=== PATIENT | female | born 1990 | race Caucasian/White ===

== ENCOUNTER 2021-04-30 14:56 | Observation (INO) | payer BC, SELFPAY ==
[2021-04-30 15:01] VITALS: BP 129/82; PULSE 78
[2021-04-30 15:03] VITALS: BMI 28.5
--- NOTE | 2021-04-30 15:03 | OBADM ---
This patient, Ofe Orellana, admitted to the OB room Labor/Delivery/Recovery 118 for observation. Patient/family oriented to hospital policies and general routines including ID bracelet, bed and alarms, visiting hours, pain management, procedures, bathroom and other care routines, personal items, smoking policy, room service/diet, and visiting hours. Patient/Family are encouraged to report perceived risks to care and to ask questions if they do not understand what they are told or what they should do.
[2021-04-30 15:15] VITALS: BP 123/76; PULSE 84
[2021-04-30 15:31] VITALS: BP 116/65; PULSE 86
[2021-04-30 15:46] VITALS: BP 113/74; PULSE 80
[2021-04-30 16:01] VITALS: BP 116/75; PULSE 81
[2021-04-30 16:16] VITALS: BP 120/64; PULSE 82
--- NOTE | 2021-04-30 18:21 | PC.NURSE ---
1451--Reported FHT's to Dr. Cervantes-appropriate for gestation. Orders for KB and 2 hour observation given,
--- NOTE | 2021-04-30 18:22 | PC.NURSE ---
1630--Tracing appropriate for gestation, pt marking movement appropriately; no contractions noted; Pt denies any cramping or distress. VSS
--- NOTE | 2021-04-30 18:24 | PC.NURSE ---
1620--KB negative; DC's to home with precautions.
--- NOTE | 2021-05-23 19:27 | PM.OBTRLD ---
OB - Triage/Final Diagnosis Visit Information Comments/Additional reasons for admission: I have assessed the risk for this patient, Ofe Orellana, and determined that she would benefit from observation care. Evaluation Laboratory results: Laboratory Tests 04/30/21 15:09 KB Hemoglobin Negative Final Diagnosis (1) Decreased movement: Code(s): O36.8190 - Decreased movements, unspecified trimester, not applicable or unspecified Status: Acute
== END 2021-04-30 16:46 | disposition home or self-care (01) ==
LOC: ANHLDR 14:57
PROVIDERS: Admitting Provider Obstetrics & Gynecology; PCP Family Medicine; Visit Provider Obstetrics & Gynecology
DX: O36.8190 Decreased fetal movements, unspecified trimester, not applicable or unspecified (principal); Z3A.23 23 weeks gestation of pregnancy
CPT/HCPCS: 36415; 85460; G0378; G0379

== ENCOUNTER 2022-11-05 18:38 | Emergency (ER) | payer BC, SELFPAY ==
[2022-11-05 18:42] VITALS: BP 136/71; PULSE 68; RESP 16; TEMP 37.1; O2SAT 100
[2022-11-05 18:48] VITALS: BP 136/71; PULSE 68; RESP 16; TEMP 37.1; O2SAT 100
--- NOTE | 2022-11-05 18:55 | ED.FEMALEGU ---
HPI - Female Genitourinary General Chief complaint: Urogenital-Female Stated complaint: Urinary Problem Time Seen by Provider: 11/05/22 18:55 History of Present Illness HPI Narrative: PATIENT PRESENTS WITH URINARY FREQUENCY AND URGENCY. PATIENT DENIES ANY GROSS HEMATURIA NO FLANK PAIN AND NO PELVIC PAIN. PATIENT HAS NO CONCERN FOR STDS. Related Data Allergies Allergy/AdvReac Type Severity Reaction Status Date / Time No Known Allergies Allergy Unknown Verified 11/05/22 18:48 Review of Systems Review of Systems: CONSTITUTIONAL: DENIES FEVER, CHILLS, OR SWEATS. EYES: DENIES VISUAL CHANGES, REDNESS, OR DISCHARGE. ENT: DENIES RHINORRHEA, CONGESTION, SORE THROAT, OR OTALGIA. CARDIOVASCULAR: DENIES CHEST PAIN, PALPITATIONS, OR EDEMA. RESPIRATORY: DENIES COUGH OR DYSPNEA. GASTROINTESTINAL: DENIES ABDOMINAL PAIN, NAUSEA, VOMITING, OR DIARRHEA. GENITOURINARY: DENIES DYSURIA OR HEMATURIA. SKIN: DENIES RASH OR ITCHING. MUSCULOSKELETAL: DENIES BACK PAIN, JOINT PAIN, OR MYALGIA. NEUROLOGIC: DENIES HEADACHE, NUMBNESS, OR WEAKNESS. PSYCHIATRIC: DENIES ANXIETY OR DEPRESSION. [facility] Past Medical History Medical History (Updated 11/05/22 @ 18:59 by MARTHA Orozco) Hypothyroidism (acquired) Surgical History Surgical History (Updated 01/16/22 @ 13:36 by Ashley Carl MA) History of section, unknown scar Family History Family History Father Hypertension Cerebrovascular accident Mother Family history of malignant neoplasm Family history of diabetes mellitus in first degree relative Social History Social History Smoking status: Never smoker Alcohol intake: current Comments AT TIME OF SIGNATURE, AGREE WITH NURSING PAST MEDICAL, SURGICAL, SOCIAL AND FAMILY HISTORY. THERE IS NO RELEVANT FAMILY HISTORY PERTINENT TO THE PRESENTING COMPLAINT Exam Narrative: GENERAL: WELL-APPEARING, WELL-NOURISHED, AND IN NO ACUTE DISTRESS. HEAD: NORMOCEPHALIC, ATRAUMATIC. EYES: PERRLA AND EOMI. ENT: NARES CLEAR, NO RHINORRHEA OR EPISTAXIS. MUCOUS MEMBRANES MOIST. NECK: SUPPLE. CHEST: CLEAR TO AUSCULTATION. NO RESPIRATORY DISTRESS. HEART: REGULAR RATE AND RHYTHM. NO MURMUR HEARD. NORMAL PERIPHERAL PULSES. NO FLANK PAIN NO PELVIC PAIN ABDOMEN: SOFT, NONTENDER, NONDISTENDED, NORMAL ACTIVE BOWEL SOUNDS. EXTREMITIES: NORMAL RANGE OF MOTION. NO EDEMA. SKIN: WARM, DRY, NO RASH. NEURO: NO FOCAL DEFICITS. ALERT AND ORIENTED X3. DARREN COMA SCALE EYE OPENING: SPONTANEOUS 4 DARREN COMA SCALE MOTOR: OBEYS COMMANDS 6 DARREN COMA SCALE VERBAL: ORIENTED 5 DARREN COMA SCALE TOTAL 15 Course Course Level of Care: Express Care Visit Vital Signs Vital signs: Vital Signs Temperature 37.1 C 11/05/22 18:42 Pulse Rate 68 11/05/22 18:42 Respiratory Rate 16 11/05/22 18:42 Blood Pressure 136/71 11/05/22 18:42 Pulse Oximetry 100 11/05/22 18:42 Oxygen Delivery Room Air 11/05/22 18:42 Temperature 37.1 C 11/05/22 18:48 Pulse Rate 68 11/05/22 18:48 Respiratory Rate 16 11/05/22 18:48 Blood Pressure 136/71 11/05/22 18:48 Pulse Oximetry 100 11/05/22 18:48 Oxygen Delivery Room Air 11/05/22 18:48 MDM - Female Genitourinary Differential Diagnosis Differential diagnosis: Likely urinary tract infection, bacterial vaginosis, trichomoniasis, cervicitis, ovarian cyst, vaginitis, ruptured ovarian cyst and cyst of Bartholin's gland Lab Data Labs: Urine Glucose Negative Reference Range: Negative Urine Bilirubin Negative Reference Range: Negative Urine Ketone Negative Reference Range: Negative Urine Specific [place] 1.020 Reference Range:1.001-1.
== END 2022-11-05 19:00 | disposition home or self-care (01) ==
PROVIDERS: Emergency Provider Nurse Practitioner Family; PCP Nurse Practitioner Family
DX: N39.0 Urinary tract infection, site not specified (principal); E03.9 Hypothyroidism, unspecified
CPT/HCPCS: 81003; 87086; 99213; G0463

== ENCOUNTER 2023-03-30 09:54 | Emergency (ER) | payer BC, SELFPAY ==
--- NOTE | 2023-03-30 09:58 | ED.URI ---
HPI - URI/Sore Throat General Chief Complaint: Upper Respiratory Infection Stated Complaint: sore throat Time Seen by Provider: 03/30/23 09:58 Source: patient Mode of arrival: ambulatory Limitations: no limitations History of Present Illness HPI Narrative: Patient is a 32-year-old female presents with 3 days of sore throat, congestion and runny nose. 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 Patient has been taking allergy medicine and Tylenol with only mild relief. Patient reports daughter and also has similar symptoms. Denies any fever, chills, nausea, vomiting, diarrhea. Patient is also 5 weeks Related Data Allergies Allergy/AdvReac Type Severity Reaction Status Date / Time No Known Allergies Allergy Unknown Verified 03/30/23 10:27 Review of Systems Review of Systems: All systems reviewed & are unremarkable except as noted in HPI and below Constitutional: Constitutional: Denies body ache(s), Denies fever(s), Denies headache(s), Denies malaise and Denies weakness Eyes: Eyes: Denies loss of vision ENT: Denies otalgia, Denies headache(s), Reports nasal congestion, Reports nasal discharge, Denies sinus pain and Reports sore throat Cardiovascular: Cardiovascular: Denies chest pain, Denies irregular heart rhythm and Denies dyspnea Respiratory: Respiratory: Denies cough and Denies dyspnea Gastrointestinal: Gastrointestinal: Denies abdominal pain, Denies melena, Denies hematochezia, Denies diarrhea, Denies nausea and Denies vomiting Musculoskeletal: Musculoskeletal: Denies back pain, Denies myalgias and Denies arthralgias Integumentary/Breasts: Skin/Breast: Denies pruritus and Denies rash Neurologic: Denies headache(s), Denies loss of vision and Denies weakness Psychiatric: Psychiatric: Reports no additional psychiatric complaints [facility] Past Medical History Medical History (Updated 03/30/23 @ 10:27 by Liane Ervin APRN) Hypothyroidism (acquired) Surgical History Surgical History (Updated 01/16/22 @ 13:36 by Ashley Carl MA) History of section, unknown scar Family History Family History Father Hypertension Cerebrovascular accident Mother Family history of malignant neoplasm Family history of diabetes mellitus in first degree relative Social History Social History Smoking status: Never smoker Alcohol intake: current Comments At time of signature, agree with nursing past medical, surgical, social and family history. There is no relevant family history pertinent to the presenting complaint. Exam Const: General: cooperative, healthy appearing, comfortable, no acute distress and well nourished Nutritional Appearance: well nourished Orientation/consciousness: patient oriented x3 Limitations: no limitations HENMT: Head: normal to inspection, normocephalic and atraumatic Ears: hearing grossly normal bilaterally, external ears normal, TM's normal bilaterally and EAC's normal Face/Nose/Sinus: Normal external nose present, Normal nares present, Normal nasal mucous membranes and turbinates present, Normal septum present, normal facial exam, sinuses nontender and face symmetric Face and sinus: normal facial exam, sinuses nontender and face symmetric Mouth: Yes Normal oral and palatal mucosa present, Yes lip normal and Yes moist mucous membranes Teeth and gingiva: dentition normal Throat: uvula midline, abnormal tonsil bilateral erythema, exudates and hypertrophy, posterior oropharynx abnormal edema, erythema and exudates and postnasal drainage Eyes: General: appearance normal, both eyes and all related structures Alignment and Position: alignment normal and position normal Periorbital: periorbital findings normal Eyelids: eyelids normal Pupils: Equal, round and reactive pupils present Neck: Neck: normal visual inspection, ful
[2023-03-30 10:06] VITALS: BP 123/83; PULSE 57; RESP 16; TEMP 37.1; O2SAT 100
== END 2023-03-30 10:38 | disposition home or self-care (01) ==
PROVIDERS: Emergency Provider Nurse Practitioner Family; PCP Nurse Practitioner Family
DX: J02.0 Streptococcal pharyngitis (principal); E03.9 Hypothyroidism, unspecified
CPT/HCPCS: 87880; 99213; G0463

== ENCOUNTER 2023-09-19 06:50 | Outpatient (RCR) | payer BC, SELFPAY ==
[2023-09-19 09:48] LABS: Hematocrit 38.4 % (37.0-47.0); Hemoglobin 13.3 g/dL (12.0-15.0)
[2023-09-19 10:00] LABS: Glucose 1 Hour PP 50gm Dose 62 mg/dL
[2023-09-19 10:39] LABS: HIV 1/2 Ab P24 Ag Result Negative (Negative)
[2023-09-19] MEDS: RHO(D) IMMUNE GLOBULIN 300 MCG/2 ML SYRINGE IM (13:54)
== END 2023-12-18 23:59 | disposition home or self-care (01) ==
LOC: ANHLAB 06:50
PROVIDERS: PCP Nurse Practitioner Family; Visit Provider Obstetrics & Gynecology
DX: Z11.4 Encounter for screening for human immunodeficiency virus [HIV] (principal); Z29.13 Encounter for prophylactic Rho(D) immune globulin; O36.0130 Maternal care for anti-D [Rh] antibodies, third trimester, not applicable or unspecified; Z3A.00 Weeks of gestation of pregnancy not specified
CPT/HCPCS: 36415; 82947; 85014; 85018; 85461; 86703; 86850; 86900; 86901; 90384; 96372; G0432; J2790

== ENCOUNTER 2023-11-20 09:38 | Inpatient (IN) | payer OTHER, SELFPAY ==
[2023-11-20] VITALS (47 sets, daily range): BP systolic 108–138; BP diastolic 52–95; PULSE 68–102; RESP 16–18; TEMP 36.4–36.7; O2SAT 100; BMI 32.1
--- NOTE | 2023-11-20 09:38 | LDADM ---
This patient, Ofe Sequeira, was admitted to Labor/Delivery/Recovery 120 on 11/20/23 at 09:38. Plans for labor, pain management and were discussed with patient. Patient/family oriented to hospital policies and general routines including ID bracelet, bed and alarms, visiting hours, pain management, procedures, bathroom and other care routines, personal items, smoking policy, room service/diet and guest tray routines, infant security routines, and visiting hours. Patient/Family are encouraged to report perceived risks to care and to ask questions if they do not understand what they are told or what they should do. See OBIX for further documentation.
[2023-11-20] MEDS: LACTATED RINGERS 1,000 ML 125 ML IV CONT ×3 (10:09→18:00)
[2023-11-20 10:22] LABS: Basophils Absolute Auto 0.1 K/mm3 (0.0-0.1); Basophils Percent Auto 0.4 % (0.2-1.2); Eosinophils Absolute Auto 0.1 K/mm3 (0-0.3); Eosinophils Percent Auto 0.5 % (0-4.4); Hematocrit 45.5 % (37.0-47.0); Hemoglobin 15.7 g/dL (12.0-15.0); Immature Granulocyte Absolute 0.09 K/mm3 (0.00-0.031); Immature Granulocyte Percent A 0.8 % (0-0.5); Lymphocytes Absolute Auto 2.67 K/mm3 (0.9-3.2); Lymphocytes Percent Auto 22.3 % (18.3-44.2); Mean Corpuscular HGB Conc 34.5 g/dl (32-36); Mean Corpuscular Hemoglobin 27.9 pg (26-34); Mean Corpuscular Volume 80.8 fl (80-100); Mean Platelet Volume 12.1 fl (7.4-10.4); Monocytes Absolute Auto 0.9 K/mm3 (0.1-0.6); Monocytes Percent Auto 7.2 % (2.6-8.5); Neutrophils Absolute Auto 8.3 K/mm3 (1.3-6.7); Neutrophils Percent Auto 68.8 % (45.5-73.1); Platelet Count Result 308 k/mm3 (150-375); Red Blood Count 5.63 M/mm3 (4.2-5.4); Red Cell Distribution Width 13.7 % (11.5-14.5)
[2023-11-20 10:30] LABS: Alanine Aminotransferase 19 U/L (6-35); Albumin Level 4.1 g/dL (3.5-5.1); Alkaline Phosphatase 150 U/L (38-126); Anion Gap 8 mmol/L (8-16); Aspartate Amino Transferase 29 U/L (14-36); Bilirubin,Total 0.4 mg/dL (0.2-1.3); Blood Urea Nitrogen 7 mg/dL (7-17); Calcium 9.6 mg/dL (8.4-10.2); Carbon Dioxide 22 mmol/L (22-30); Chloride 106 mmol/L (98-107); Estimated Glomerular Filt Rate > 60; Glucose 76 mg/dL (65-110); Potassium 4.1 mmol/L (3.4-5.0); Sodium 136 mmol/L (137-145); Uric Acid 5.2 mg/dL (2.5-7.5)
[2023-11-20] MEDS: ACETAMINOPHEN 500 MG TABLET 1000 MG PO (10:41)
[2023-11-20 11:08] LABS: HIV 1/2 Ab P24 Ag Result Negative (Negative)
--- NOTE | 2023-11-20 11:34 | WPDANESEPPF ---
Anes - Initial Pre Proc Eval Procedure: Operation Date: 11/20/23 12:00 Proposed Procedures p Section - Porfirio Kearney MD Date/Time: 11/20/23 11:34 Surgeon: Porfirio Kearney MD Pre Op Diagnosis: Repeat C/Section Patient Data Age: 33 Gender: F Height: 1.63 m Weight: 85 kg Last Vital Signs Pulse 102 H 11/20/23 11:30 BP 134/91 H 11/20/23 11:30 Allergies Allergy/AdvReac Type Severity Reaction Status Date / Time No Known Allergies Allergy Unknown Verified 11/09/23 14:15 Home Medications Medication Instructions Recorded Confirmed Type Baby Aspirin 1 tab-cap PO DAILY 11/09/23 11/09/23 History levothyroxine 125 mcg tablet 300 mcg PO DAILY 11/09/23 11/09/23 History vits no.126-ferrous fum 1 tablet PO DAILY 11/09/23 11/09/23 History 28 mg iron-folic acid 800 mcg tablet (Classic ) Laboratory Tests 11/20/23 09:54 WBC 12.0 H K/mm3 (4.5-10.0) RBC 5.63 H M/mm3 (4.2-5.4) Hgb 15.7 H g/dL (12.0-15.0) Hct 45.5 % (37.0-47.0) MCV 80.8 fl (80-100) MCH 27.9 pg (26-34) MCHC 34.5 g/dl (32-36) RDW 13.7 % (11.5-14.5) Plt Count 308 k/mm3 (150-375) MPV 12.1 H fl (7.4-10.4) Immature Gran % (Auto) 0.8 H % (0-0.5) Neut % (Auto) 68.8 % (45.5-73.1) Lymph % (Auto) 22.3 % (18.3-44.2) [place]erry % (Auto) 7.2 % (2.6-8.5) Eos % (Auto) 0.5 % (0-4.4) Baso % (Auto) 0.4 % (0.2-1.2) Lymph # (Auto) 2.67 K/mm3 (0.9-3.2) [place]erry # (Auto) 0.9 H K/mm3 (0.1-0.6) Eos # (Auto) 0.1 K/mm3 (0-0.3) Baso # (Auto) 0.1 K/mm3 (0.0-0.1) Abs Immat Gran (auto) 0.09 H K/mm3 (0.00-0.031) Absolute Neuts (auto) 8.3 H K/mm3 (1.3-6.7) Absolute Nucleated RBC 0.0 K/mm3 (0.0-0.012) Nucleated RBC % 0.0 % (0.0-0.2) Sodium 136 L mmol/L (137-145) Potassium 4.1 mmol/L (3.4-5.0) Chloride 106 mmol/L (98-107) Carbon Dioxide 22 mmol/L (22-30) Anion Gap 8 mmol/L (8-16) BUN 7 mg/dL (7-17) Creatinine 0.50 L mg/dL (0.7-1.0) Estim Creat Clear Calc Not Reportable Estimated GFR > 60 (59 - ) Glucose 76 mg/dL (65-110) Uric Acid 5.2 mg/dL (2.5-7.5) Calcium 9.6 mg/dL (8.4-10.2) Total Bilirubin 0.4 mg/dL (0.2-1.3) AST 29 U/L (14-36) ALT 19 U/L (6-35) Alkaline Phosphatase 150 H U/L (38-126) Total Protein 8.0 g/dL (6.3-8.2) Albumin 4.1 g/dL (3.5-5.1) RPR Pending HIV 1&2 Ab/P24 Ag 4thGn Negative (Negative) Blood Type O Negative Antibody Screen Positive Antibody Identification Pending Antigen Identification Pending MARII, IgG Interpret Pending MARII, Poly Interpret Pending MARII, Complement Interp Pending Patient hx anesthesia problems: none Family hx anesthesia problems: none Results Review: All pre-operative results and documents have been reviewed as part of the pre-operative evaluation. [facility] Past Medical History Medical History Hypothyroidism (acquired) Surgical History Surgical History History of section, unknown scar Family History Family History Father Hypertension Cerebrovascular accident Mother Family history of malignant neoplasm Family history of diabetes mellitus in first degree relative Kidney failure Social History Social History Smoking status: Never smoker Alcohol intake: current Substance use: never Do You Feel Safe in your Home?: Yes Lack of Transportation: No Lack of Food: Never True Current Housing: I Have Housing Concerned About Future Housing: No Difficulty Paying Gas/Electric Bills: No Difficulty Paying for Meds: No Currently Unemployed: No Education: [employer]
[2023-11-20] MEDS: FAMOTIDINE 20 MG/2 ML VIAL IV PUSH (11:58)
[2023-11-20] MEDS: ONDANSETRON INJ 4 MG/2 ML VIAL IV PUSH (11:58)
--- NOTE | 2023-11-20 12:01 | PM.IMHP ---
H&P: HPI History of Present Illness Date/Time: 11/20/23 12:01 Chief Complaint: gestational hypertension, prior c section Narrative: Patient presents for repeat c section, indicated for gestational hypertension. No s/s of severe preeclampsia. testing has been reactive. Bp remains mild range. PMH otherwise significant for delivery via c section at 31 weeks. Otherwise, complicated by hypothyroidism. R/b/a of c section previously discussed with patient, patient agreeable to proceeding with c section. Review of Systems Review of Systems: All systems reviewed & are unremarkable except as noted in HPI and below PMFSH Past Medical History Medical History (Updated 11/20/23 @ 12:04 by Porfirio Kearney MD) Hypothyroidism (acquired) Surgical History Surgical History (Updated 11/20/23 @ 12:04 by Porfirio Kearney MD) History of section, unknown scar Family History Family History Father Hypertension Cerebrovascular accident Mother Family history of malignant neoplasm Family history of diabetes mellitus in first degree relative Kidney failure Social History Social History Smoking status: Never smoker Alcohol intake: current Substance use: never Do You Feel Safe in your Home?: Yes Lack of Transportation: No Lack of Food: Never True Current Housing: I Have Housing Concerned About Future Housing: No Difficulty Paying Gas/Electric Bills: No Difficulty Paying for Meds: No Currently Unemployed: No Education: Bachelor's Degree Difficulty w/ Childcare or Family Care: No Spiritual care concerns: No Meds Home Medications and Allergies Home Medications Medication Instructions Recorded Confirmed Type Baby Aspirin 1 tab-cap PO DAILY 11/09/23 11/09/23 History levothyroxine 125 mcg tablet 300 mcg PO DAILY 11/09/23 11/09/23 History vits no.126-ferrous fum 1 tablet PO DAILY 11/09/23 11/09/23 History 28 mg iron-folic acid 800 mcg tablet (Classic ) Allergies Allergy/AdvReac Type Severity Reaction Status Date / Time No Known Allergies Allergy Unknown Verified 11/09/23 14:15 Vital Signs Vital Signs - 24 hr 11/20/23 10:57 11/20/23 11:00 11/20/23 11:15 Pulse Rate 93 98 96 Blood Pressure 135/85 138/83 133/95 H 11/20/23 11:30 Pulse Rate 102 H Blood Pressure 134/91 H Exam Const: General: comfortable and no acute distress HENMT: Mouth: Yes moist mucous membranes Eyes: General: appearance normal, both eyes and all related structures Neck: Neck: supple Resp: Effort & Inspection: normal respiratory effort Cardio: Rate: regular rate Rhythm: regular rhythm Skin: General skin exam: normal color Extrem: General: normal to inspection Psych: Mental Status: mental status grossly normal H&P: Results Labs Labs: Short CBC 11/20/23 Range/Units 09:54 WBC 12.0 H (4.5-10.0) K/mm3 Hgb 15.7 H (12.0-15.0) g/dL Hct 45.5 (37.0-47.0) % Plt Count 308 (150-375) k/mm3 BMP 11/20/23 09:54 Sodium 136 L Potassium 4.1 Chloride 106 Carbon Dioxide 22 BUN 7 Creatinine 0.50 L Glucose 76 Calcium 9.6 Liver Function 11/20/23 Range/Units 09:54 Total Bilirubin 0.4 (0.2-1.3) mg/dL AST 29 (14-36) U/L ALT 19 (6-35) U/L Alkaline Phosphatase 150 H (38-126) U/L Albumin 4.1 (3.5-5.1) g/dL Assessment and Plan Assessment and plan (1) Gestational hypertension: Code(s): O13.9 - Gestational [-induced] hypertension without significant proteinuria, unspecified trimester Status: Acute (2) Hypothyroidism (acquired): Code(s): E03.9 - Hypothyroidism, unspecified Status: Acute (3) History of section, unknown scar: Code(s): Z98.891 - History of uterine scar from previous surgery Status: Acute Plan Proceed with rep
[2023-11-20] MEDS: ceFAZolin 2 GM/D5W 50 ML 2 GM/50 ML BAG IVPB (12:06)
--- NOTE | 2023-11-20 12:06 | WPDHPUPDATE1 ---
History and Physical Update Update Date/Time: 11/20/23 12:06 History and Physical has been reviewed, including an updated exam of the patient. There are NO changes in the patient's condition. Risks, benefits, and alternatives have been discussed and questions answered. Patient agrees to proceed with procedure.
[2023-11-20] MEDS: OXYTOCIN 30 UNITS/NS 500 ML 30 UNITS/500 ML BAG 125 UNITS IV CONT (13:10)
--- NOTE | 2023-11-20 13:20 | P.OP_ITS ---
Procedure Note - Detailed Date of Procedure 11/20/23 Pre-op Diagnosis Repeat C/Section, gestational hypertension Post-op Diagnosis Same Procedure Performed repeat c section Surgeon Porfirio Kearney MD Anesthesia Spinal Indications Patient is a 33 year old at 37 weeks with hx of c section, complicated by gestational hypertension Findings baby in cephalic position, meconium stained amniotic fluid Description of Procedure The patient was taken to the operating room where she was given spinal anesthesia without issue. She was then placed in the dorsal supine position with a leftward tilt. The electronic monitor was placed and heart rate was found to be reassuring. She was prepped and draped in the normal sterile fashion, and anesthesia was checked to be adequate. A Pfannenstiel skin incision was made with the scalpel and carried through to the underlying layer of fascia with the scalpel. The fascia was incised in the midline and the incision extended laterally with the Chang scissors. The superior aspect of the fascial incision was then grasped with Jimmy clamps, elevated, and the underlying rectus muscles dissected off bluntly and with Chang scissors. Attention was then turned to the inferior aspect of the fascial incision, which in similar fashion was grasped, elevated, and the rectus muscles dissected off.? The rectus muscles were then in the midline, and the peritoneum entered bluntly. The peritoneal incision was extended superiorly and inferiorly with good visualization of the bladder. The bladder blade was then inserted and the vesicouterine peritoneum identified, grasped with a Peon clamp, and entered sharply with the Metzenbaum scissors. The incision was extended laterally and the bladder flap created digitally. With the bladder blade providing retraction and visualization, the lower uterine segment was incised in a transverse fashion with the scalpel. The uterine incision was then extended laterally. The bladder blade was removed and the i nfant's head was elevated and delivered atraumatically. The remainder of the was then delivered without difficulty, and the infant's nose and mouth were suctioned with the bulb suction. The umbilical cord was doubly clamped and cut. The infant was then handed off to the waiting nursing staff. Specimens then obtained as listed below. The placenta was then removed manually and the uterus was exteriorized and cleared of all clots and debris. The uterine incision was repaired with 0- Monocryl in a running, interlocked fashion. The uterus was returned to the abdomen. The gutters were then manually cleared of all clots and debris.? The uterine incision was visualized to be hemostatic. The fascia was reapproximated with 0-Vicryl in a running fashion. The subcutaneous tissues were irrigated with warmed normal saline, and hemostasis was assured. The skin was closed with 4-0 Monocryl in a running subcuticular fashion then covered with skin glue. Fundal pressure was applied to express remaining intrauterine clots and debris. The patient tolerated the procedure well. Sponge, lap, and needle counts were correct times three per nursing. The patient was taken to the recovery room in stable condition. Estimated Blood Loss 350 Pathology Yes (placenta) Complications No immediate complications Condition Stable Disposition Floor
[2023-11-20] MEDS: KETOROLAC 30 MG/ML VIAL (*BKC) (13:59)
[2023-11-20] MEDS: LIDOCAINE 5% PATCH 1 PATCH TRANSDERM (14:03)
--- NOTE | 2023-11-20 16:00 | OBPPTRN ---
Patient transferred to post room #290 via stretcher. Support person present. Oriented to unit, room, information board, rooming in, admission packet and security measures. Patient verbalizes understanding.
[2023-11-20 17:04] LABS: Rapid Plasma Reagin Non-Reactive (NonReactive)
[2023-11-20] MEDS: KETOROLAC 15 MG/ML VIAL (*BKC) IV PUSH (20:00)
[2023-11-20] MEDS: ACETAMINOPHEN 325 MG TABLET 650 MG PO (20:00)
[2023-11-21 00:30] VITALS: BP 104/57; PULSE 76; RESP 16; TEMP 36.7; O2SAT 100
[2023-11-21] MEDS: ACETAMINOPHEN 325 MG TABLET 650 MG PO ×5 (03:15→21:30)
[2023-11-21] MEDS: KETOROLAC 15 MG/ML VIAL (*BKC) IV PUSH ×3 (03:15→15:22)
[2023-11-21 03:45] VITALS: BP 111/75; PULSE 77; RESP 16; TEMP 36.7; O2SAT 100
[2023-11-21 04:56] LABS: Basophils Absolute Auto 0.1 K/mm3 (0.0-0.1); Basophils Percent Auto 0.4 % (0.2-1.2); Eosinophils Absolute Auto 0.1 K/mm3 (0-0.3); Eosinophils Percent Auto 0.7 % (0-4.4); Hemoglobin 11.7 g/dL (12.0-15.0); Immature Granulocyte Absolute 0.08 K/mm3 (0.00-0.031); Immature Granulocyte Percent A 0.5 % (0-0.5); Lymphocytes Absolute Auto 2.68 K/mm3 (0.9-3.2); Lymphocytes Percent Auto 17.9 % (18.3-44.2); Mean Corpuscular HGB Conc 34.4 g/dl (32-36); Mean Corpuscular Hemoglobin 28.1 pg (26-34); Mean Corpuscular Volume 81.5 fl (80-100); Mean Platelet Volume 12.3 fl (7.4-10.4); Monocytes Absolute Auto 1.1 K/mm3 (0.1-0.6); Monocytes Percent Auto 7.3 % (2.6-8.5); Neutrophils Percent Auto 73.2 % (45.5-73.1); Platelet Count Result 240 k/mm3 (150-375); Red Blood Count 4.17 M/mm3 (4.2-5.4); Red Cell Distribution Width 13.8 % (11.5-14.5)
[2023-11-21] MEDS: LEVOTHYROXINE SODIUM 150 MCG TABLET 300 MCG PO (07:24)
[2023-11-21 07:42] VITALS: BP 119/77; PULSE 82; TEMP 36.3; O2SAT 99
--- NOTE | 2023-11-21 07:49 | P.PNOB_ITS ---
OB - PN: Subj Subjective Date/time seen: 11/21/23 07:49 Interval history: POD#1 s/p RCS Doing well, pain well controlled Normal diet, passing flatus Emptying bladder without issue Desires d/c tomorrow OB - PN: Obj Data Labs 11/21/23 03:34 11/20/23 09:54 Labs: Laboratory Results - last 24 hr 11/20/23 11/21/23 09:54 03:34 WBC 12.0 H 15.0 H RBC 5.63 H 4.17 L Hgb 15.7 H 11.7 L D Hct 45.5 34.0 L MCV 80.8 81.5 MCH 27.9 28.1 MCHC 34.5 34.4 RDW 13.7 13.8 Plt Count 308 240 MPV 12.1 H 12.3 H Immature Gran % (Auto) 0.8 H 0.5 Neut % (Auto) 68.8 73.2 H Lymph % (Auto) 22.3 17.9 L [place] % (Auto) 7.2 7.3 Eos % (Auto) 0.5 0.7 Baso % (Auto) 0.4 0.4 Lymph # (Auto) 2.67 2.68 [place] # (Auto) 0.9 H 1.1 H Eos # (Auto) 0.1 0.1 Baso # (Auto) 0.1 0.1 Abs Immat Gran (auto) 0.09 H 0.08 H Absolute Neuts (auto) 8.3 H 11.0 H Absolute Nucleated RBC 0.0 0.0 Nucleated RBC % 0.0 0.0 Sodium 136 L Potassium 4.1 Chloride 106 Carbon Dioxide 22 Anion Gap 8 BUN 7 Creatinine 0.50 L Estim Creat Clear Calc Not Reportable Estimated GFR > 60 Glucose 76 Uric Acid 5.2 Calcium 9.6 Total Bilirubin 0.4 AST 29 ALT 19 Alkaline Phosphatase 150 H Total Protein 8.0 Albumin 4.1 RPR Non-reactive HIV 1&2 Ab/P24 Ag 4thGn Negative Blood Type O Negative O Negative Antibody Screen Positive TNP Antibody Identification Passive Due to RH Imm Glob Antigen Identification TNP MARII, IgG Interpret Not Performed MARII, Poly Interpret Negative MARII, Complement Interp Not Performed Screen Negative Baby's Blood Type O pos Baby's MARII Negative Doses of RhIg Required 1 OB - PN A/P Assessment and Plan (1) Gestational hypertension: Qualifiers: Trimester: third trimester Qualified Code(s): O13.3 - Gestational [-induced] hypertension without significant proteinuria, third trimester Code(s): O13.9 - Gestational [-induced] hypertension without significant proteinuria, unspecified trimester Status: Acute Assessment and Plan: Normotensive since delivery Asymptomatic Continue to monitor BP closely Plan day: 2 Plan: routine care Comments: plan for d/c home tomorrow Time Spent With Patient Time: Total time spent is greater than 50% in coordination of care (as documented) at patient's floor/unit and/or counseling patient: Review of Systems Review of Systems: All systems reviewed & are unremarkable except as noted in HPI and below Exam Const: General: comfortable and no acute distress Orientation/consciousness: patient oriented x3 Resp: Effort & Inspection: normal respiratory effort GI: GI Palp: Yes Soft to palpation Other: incision c/d/i
--- NOTE | 2023-11-21 08:08 | WPDANLDNPN2 ---
Anes-Prog Note L&D-Neuraxial Date/Time: 11/21/23 08:08 Patient feedback: Patient satisfied with post-operative pain management.
--- NOTE | 2023-11-21 08:08 | WPDANLDPN2 ---
Anes-Prog Note L&D Date/Time: 11/21/23 08:08 Neuro status: Neuro function grossly intact. Cardiovascular status: normal Respiratory status: normal Airway patency: baseline Mental status: baseline Post-Op hydration status: normal Vital Signs: Last Vital Signs Temp 36.7 C 11/21/23 03:45 Pulse 77 11/21/23 03:45 Resp 16 11/21/23 03:45 BP 111/75 11/21/23 03:45 Pulse Ox 100 11/21/23 03:45 O2 Del Method Room Air 11/21/23 03:45 Pain score (VAS): 0 I/O: Intake & Output 11/20/23 11/21/23 11/21/23 23:59 07:59 15:59 Output Total 800 1500 Balance -800 -1500 Post-procedural complaints: none Patient feedback: Patient satisfied with anesthetic care.
[2023-11-21] MEDS: MULTIVIT/MIN/PREN/FOL AC/IRON TABLET 1 TAB PO (09:17)
[2023-11-21] MEDS: SIMETHICONE 80 MG TAB.CHEW PO ×3 (09:17→17:57)
[2023-11-21] MEDS: DOCUSATE SODIUM 100 MG CAPSULE PO ×2 (09:17→17:57)
--- NOTE | 2023-11-21 09:52 | PC.NURSE ---
On 11/21/23, the student, Néstor Dotson, provided care and completed [facility] documentation on this patient. I have reviewed the student's documentation and agree with the findings.
--- NOTE | 2023-11-21 11:25 | PM.OBDSVD ---
DS: Admitting Diagnosis Discharge Date 11/22/23 Admitting Diagnosis gestational HTN, repeat c section DS: Discharge Diagnosis Discharge Diagnosis (1) S/P : Code(s): Z98.891 - History of uterine scar from previous surgery Status: Acute (2) Gestational hypertension: Qualifiers: Trimester: third trimester Qualified Code(s): O13.3 - Gestational [-induced] hypertension without significant proteinuria, third trimester Code(s): O13.9 - Gestational [-induced] hypertension without significant proteinuria, unspecified trimester Status: Acute OB - DS: Summary OB Procedures : None OB Procedures Intrapartum: (repeat low transverse) OB Procedures: : None Peripartum Data Procedures: Procedures Operation Date: 11/20/23 12:00 Actual Procedure Side Surgeon p Section Bilateral Porfirio Kearney MD Time Spent with Patient Time attestation: Total time spent providing and/or coordinating discharge services: DS: Data Data Completed and Pending Pending studies at discharge: Pending at discharge 11/20/23 13:31 Surgical [PTH] Routine Labs on day of discharge: Labs from last 24 hours 11/21/23 11/20/23 03:34 09:54 WBC 15.0 H RBC 4.17 L Hgb 11.7 L D Hct 34.0 L MCV 81.5 MCH 28.1 MCHC 34.4 RDW 13.8 Plt Count 240 MPV 12.3 H Immature Gran % (Auto) 0.5 Neut % (Auto) 73.2 H Lymph % (Auto) 17.9 L [place] % (Auto) 7.3 Eos % (Auto) 0.7 Baso % (Auto) 0.4 Lymph # (Auto) 2.68 [place] # (Auto) 1.1 H Eos # (Auto) 0.1 Baso # (Auto) 0.1 Abs Immat Gran (auto) 0.08 H Absolute Neuts (auto) 11.0 H Absolute Nucleated RBC 0.0 Nucleated RBC % 0.0 RPR Non-reactive Blood Type O Negative Antibody Screen TNP Antibody Identification Passive Due to RH Imm Glob Antigen Identification TNP MARII, IgG Interpret Not Performed MARII, Poly Interpret Negative MARII, Complement Interp Not Performed Screen Negative Baby's Blood Type O pos Baby's MARII Negative Doses of RhIg Required 1 Discharge Plan Discharge Attending physician on discharge: Porfirio Kearney Discharging Clinician: Porfirio Kearney Anticipated Discharge Date/Time: 11/22/23 11:19 Patient Disposition: Home, Self-Care Activity: may shower and pelvic rest Diet: as tolerated Wound Care Instructions: incision open to air Patient Instructions: Antibiotic Form Stand Alone Forms: General Discharge Information Follow-up/Referrals: Porfirio Kearney MD [Physician] - 1 Week Discharge Medications: New hydrocodone-acetaminophen 5-325 mg Tablet 1 tablet PO Q3H PRN (Reason: Breakthrough Pain Rated 4-6) Qty: 18 0RF docusate sodium 100 mg Capsule 100 mg PO BID Qty: 60 1RF ibuprofen 600 mg Tablet 600 mg PO Q6H Qty: 30 0RF Continued Classic 28 mg iron- 800 mcg Tablet 1 tablet PO DAILY levothyroxine 125 mcg tablet 300 mcg PO DAILY Discontinued Baby Aspirin 1 tab-cap PO DAILY Date of admission: 11/20/23 09:38 Primary Care Provider: CatSameera Admitting Provider: Porfirio Kearney Attending physician on admission: Porfirio Kearney Condition: Stable
[2023-11-21 11:36] VITALS: BP 128/84; PULSE 76; RESP 18; TEMP 36.7; O2SAT 100
[2023-11-21] MEDS: RHO(D) IMMUNE GLOBULIN 300 MCG/2 ML SYRINGE IM (13:11)
[2023-11-21 16:28] VITALS: BP 130/78
--- NOTE | 2023-11-21 17:07 | PC.NURSE ---
[id number] Introductions were made, then consulted with patient to assess needs related to . Discussed with mother her?plans to feed?her infant and the?experience so far. Reviewed late- behaviors and expectations using educational resources. Infant is taken to the nursery for a circumcision by the primary RN. Resources provided for inpatient and outpatient services with the feeding sheet, mom/baby guide and name written on the communication board. Mother voiced understanding of information and will call if there is a request for assistance. Reported to the Primary RN. [id number] Patient was assessed for correct placement, flange size, to pump for comfort and nipple stretching/stimulation for adequate milk production every 3 hours (8 times in 24 hours) 1-2 times at night. Mother declined flange fitting or measurement. It appears that the nipple may rub the side of the barrel at times. Reviewed sizing, positioning of the breast shield, frequency of milk removal versus turning the pump pressure higher. Decreased the pump setting to allow for more comfort. Mother states after the adjustment it was better, then the rubbing began after a couple of minutes. Instruction given to mother that there's to be no pain with or pumping. The 24mm flange fits tight and parents will go home to get the 27mm flange that she used with her first child.?Mother voiced understanding of education shared. Reported to the Primary RN.
[2023-11-21] MEDS: LIDOCAINE 5% PATCH 1 PATCH TRANSDERM (19:40)
[2023-11-21 20:00] VITALS: BP 116/77; PULSE 85; RESP 16; TEMP 36.9; O2SAT 100
[2023-11-21] MEDS: IBUPROFEN 600 MG TABLET PO (21:30)
[2023-11-22] VITALS: BP 125/63; PULSE 77; RESP 16; O2SAT 100
[2023-11-22] MEDS: ACETAMINOPHEN 325 MG TABLET 650 MG PO ×4 (03:15→22:25)
[2023-11-22] MEDS: IBUPROFEN 600 MG TABLET PO ×4 (03:15→22:25)
[2023-11-22 04:00] VITALS: BP 125/80; PULSE 80; RESP 16; O2SAT 100
[2023-11-22] MEDS: SIMETHICONE 80 MG TAB.CHEW PO ×3 (07:44→16:11)
[2023-11-22] MEDS: LEVOTHYROXINE SODIUM 150 MCG TABLET 300 MCG PO (07:44)
[2023-11-22] MEDS: MULTIVIT/MIN/PREN/FOL AC/IRON TABLET 1 TAB PO (07:44)
[2023-11-22] MEDS: DOCUSATE SODIUM 100 MG CAPSULE PO ×2 (07:44→16:11)
--- NOTE | 2023-11-22 08:01 | PM.OBPNVD ---
OB - PN: Subj Subjective Date/time seen: 11/22/23 08:01 Interval history: POD#1 s/p RCS Doing well, pain well controlled Normal diet, passing flatus Emptying bladder without issue Desires d/c tomorrow OB - PN: Obj Data Labs 11/21/23 03:34 11/20/23 09:54 Labs: Laboratory Results - last 24 hr 11/21/23 03:34 Blood Type O Negative Antibody Screen TNP Screen Negative Baby's Blood Type O pos Baby's MARII Negative Doses of RhIg Required 1 OB - PN A/P Time Spent With Patient Time: Total time spent is greater than 50% in coordination of care (as documented) at patient's floor/unit and/or counseling patient:
[2023-11-22 08:05] VITALS: BP 134/92; PULSE 95; RESP 16; TEMP 37.3; O2SAT 100
[2023-11-22 12:25] VITALS: BP 129/88; PULSE 98; RESP 16; TEMP 36.8; O2SAT 100
--- NOTE | 2023-11-22 15:49 | PC.NURSE ---
[id number] Purposefully rounded to assess for pumping needs. Mother is using her personal Spectra 2 pump with her breastshields from home. She shared that she is using 24mm flanges with no pain and the Spectra flanges fit better. Mother is pumping 35-50ml of human milk and is comfortable with pump/feeding at this time as that is what she did with her first for 18 months. Reinforced understanding of milk production, transition of milk, signs of adequate intake, transition of stool, prevention/relief of engorgement, plugged ducts, mastitis, responsive feeding, community resources, and when to call a provider using the resource of the feeding sheet and the mom and baby guide. Mother voiced understanding of the education shared. Reported to the Primary RN.
[2023-11-22 20:00] VITALS: BP 116/79; PULSE 78; RESP 16; TEMP 37; O2SAT 100
[2023-11-23] MEDS: ACETAMINOPHEN 325 MG TABLET 650 MG PO ×2 (05:00→10:35)
[2023-11-23 05:30] VITALS: BP 125/94; PULSE 83; RESP 16; TEMP 36.6; O2SAT 100
[2023-11-23] MEDS: IBUPROFEN 600 MG TABLET PO ×2 (05:30→10:36)
[2023-11-23] MEDS: SIMETHICONE 80 MG TAB.CHEW PO (07:05)
[2023-11-23] MEDS: LEVOTHYROXINE SODIUM 150 MCG TABLET 300 MCG PO (07:05)
--- NOTE | 2023-11-23 08:00 | PM.OBPNVD ---
OB - PN: Subj Subjective Date/time seen: 11/23/23 08:00 Interval history: POD#2 s/p RCS Doing well, pain well controlled Normal diet, passing flatus Emptying bladder without issue Desires d/c OB - PN: Obj Data Labs 11/21/23 03:34 11/20/23 09:54 OB - PN A/P Plan day: 3 Plan: routine care and discharge home Time Spent With Patient Time: Total time spent is greater than 50% in coordination of care (as documented) at patient's floor/unit and/or counseling patient: Review of Systems Review of Systems: All systems reviewed & are unremarkable except as noted in HPI and below Exam Const: General: cooperative, healthy appearing and comfortable Resp: Effort & Inspection: normal respiratory effort Psych: Appearance: grossly normal
--- NOTE | 2023-11-23 08:01 | PM.OBDSVD ---
DS: Admitting Diagnosis Discharge Date 11/23/23 Admitting Diagnosis repeat DS: Discharge Diagnosis Discharge Diagnosis (1) S/P : Code(s): Z98.891 - History of uterine scar from previous surgery Status: Acute OB - DS: Summary OB Procedures : None OB Procedures Intrapartum: OB Procedures: : None Peripartum Data Procedures: Procedures Operation Date: 11/20/23 12:00 Actual Procedure Side Surgeon p Section Bilateral Porfirio Kearney MD Time Spent with Patient Time attestation: Total time spent providing and/or coordinating discharge services: DS: Data Data Completed and Pending Pending studies at discharge: Pending at discharge 11/20/23 13:31 Surgical [PTH] Routine Discharge Plan Discharge Attending physician on discharge: Porfirio Kearney Discharging Clinician: Porfirio Kearney Anticipated Discharge Date/Time: 11/22/23 11:19 Patient Disposition: Home, Self-Care Activity: may shower and pelvic rest Diet: as tolerated Wound Care Instructions: incision open to air Patient Instructions: Antibiotic Form Stand Alone Forms: General Discharge Information Follow-up/Referrals: Porfirio Kearney MD [Physician] - 1 Week Discharge Medications: New hydrocodone-acetaminophen 5-325 mg Tablet 1 tablet PO Q3H PRN (Reason: Breakthrough Pain Rated 4-6) Qty: 18 0RF docusate sodium 100 mg Capsule 100 mg PO BID Qty: 60 1RF ibuprofen 600 mg Tablet 600 mg PO Q6H Qty: 30 0RF Continued Classic 28 mg iron- 800 mcg Tablet 1 tablet PO DAILY levothyroxine 125 mcg tablet 300 mcg PO DAILY Discontinued Baby Aspirin 1 tab-cap PO DAILY Date of admission: 11/20/23 09:38 Primary Care Provider: CatSameera Admitting Provider: Porfirio Kearney Attending physician on admission: Porfirio Kearney Condition: Stable
[2023-11-23 08:10] VITALS: BP 125/85; PULSE 82; RESP 18; TEMP 36.8; O2SAT 100
[2023-11-23] MEDS: DOCUSATE SODIUM 100 MG CAPSULE PO (10:36)
[2023-11-23] MEDS: MULTIVIT/MIN/PREN/FOL AC/IRON TABLET 1 TAB PO (10:36)
[2023-11-24 11:30] VITALS: BP 134/89; PULSE 74; RESP 18; TEMP 36.9; O2SAT 100
== END 2023-11-23 11:35 | disposition home or self-care (01) | DRG 788 ==
LOC: ANHLDR 09:42 → ANHOB2 15:57
PROVIDERS: Admitting Provider Obstetrics & Gynecology; PCP Nurse Practitioner Family; Visit Provider Obstetrics & Gynecology
PROC: 10D00Z1 Extraction of Products of Conception, Low, Open Approach (ICD-10-PCS; CPT 59514; principal; 2023-11-20 12:00)
DX: O34.219 Maternal care for unspecified type scar from previous cesarean delivery (principal); O13.4 Gestational [pregnancy-induced] hypertension without significant proteinuria, complicating childbirth; O99.284 Endocrine, nutritional and metabolic diseases complicating childbirth; E03.9 Hypothyroidism, unspecified; O77.0 Labor and delivery complicated by meconium in amniotic fluid; Z3A.31 31 weeks gestation of pregnancy; Z37.0 Single live birth
CPT/HCPCS: 36415; 80053; 84550; 85025; 85461; 86592; 86703; 86850; 86880; 86900; 86901; 86902; 88307; 90384; A9270; G0432; J0690; J1885; J2274; J2371; J2405; J2590; J2790; J3010; J7120

== ENCOUNTER 2024-01-15 11:06 | Outpatient (CLI) | payer OTHER, SELFPAY ==
[2024-01-15 14:38] LABS: Basophils Percent Auto 0.4 % (0.2-1.2); Eosinophils Absolute Auto 0.1 K/mm3 (0-0.3); Eosinophils Percent Auto 1.6 % (0-4.4); Hematocrit 44.3 % (37.0-47.0); Hemoglobin 14.9 g/dL (12.0-15.0); Immature Granulocyte Absolute 0.01 K/mm3 (0.00-0.031); Immature Granulocyte Percent A 0.1 % (0-0.5); Lymphocytes Absolute Auto 2.72 K/mm3 (0.9-3.2); Lymphocytes Percent Auto 39.2 % (18.3-44.2); Mean Corpuscular HGB Conc 33.6 g/dl (32-36); Mean Corpuscular Hemoglobin 27.3 pg (26-34); Mean Corpuscular Volume 81.1 fl (80-100); Mean Platelet Volume 10.9 fl (7.4-10.4); Monocytes Absolute Auto 0.5 K/mm3 (0.1-0.6); Monocytes Percent Auto 6.6 % (2.6-8.5); Neutrophils Absolute Auto 3.6 K/mm3 (1.3-6.7); Neutrophils Percent Auto 52.1 % (45.5-73.1); Platelet Count Result 393 k/mm3 (150-375); Red Blood Count 5.46 M/mm3 (4.2-5.4); Red Cell Distribution Width 13.8 % (11.5-14.5); White Blood Count 6.9 K/mm3 (4.5-10.0)
[2024-01-15 14:43] LABS: Alanine Aminotransferase 90 U/L (6-35); Albumin Level 4.3 g/dL (3.5-5.1); Alkaline Phosphatase 85 U/L (38-126); Anion Gap 1 mmol/L (4-12); Aspartate Amino Transferase 82 U/L (14-36); Bilirubin,Total 0.4 mg/dL (0.2-1.3); Blood Urea Nitrogen 16 mg/dL (7-17); Calcium 9.4 mg/dL (8.4-10.2); Carbon Dioxide 32 mmol/L (22-30); Chloride 103 mmol/L (98-107); Estimated Glomerular Filt Rate > 60; Glucose 81 mg/dL (65-110); Potassium 5.2 mmol/L (3.4-5.0); Sodium 136 mmol/L (137-145)
[2024-01-18 13:21] LABS: Vitamin D 1,25 (OH)2 Total 66 pg/mL (18-72); Vitamin D2 1,25 (OH)2 <8 pg/mL; Vitamin D3 1,25 (OH)2 66 pg/mL
== END 2024-01-15 11:07 | disposition home or self-care (01) ==
LOC: ANHGOSHLAB 11:08
PROVIDERS: PCP Nurse Practitioner Family; Visit Provider Nurse Practitioner Family
DX: R79.89 Other specified abnormal findings of blood chemistry (principal); E55.9 Vitamin D deficiency, unspecified; E03.9 Hypothyroidism, unspecified
CPT/HCPCS: 36415; 80053; 82652; 84443; 85025

== ENCOUNTER 2024-08-28 12:41 | Outpatient (CLI) | payer OTHER, SELFPAY ==
[2024-08-28 14:00] LABS: Basophils Percent Auto 0.4 % (0.2-1.2); Eosinophils Absolute Auto 0.1 K/mm3 (0-0.3); Eosinophils Percent Auto 1.3 % (0-4.4); Hematocrit 40.4 % (37.0-47.0); Hemoglobin 14.1 g/dL (12.0-15.0); Immature Granulocyte Absolute 0.01 K/mm3 (0.00-0.031); Immature Granulocyte Percent A 0.1 % (0-0.5); Lymphocytes Absolute Auto 3.79 K/mm3 (0.9-3.2); Lymphocytes Percent Auto 41.3 % (18.3-44.2); Mean Corpuscular HGB Conc 34.9 g/dl (32-36); Mean Corpuscular Hemoglobin 28.2 pg (26-34); Mean Corpuscular Volume 80.8 fl (80-100); Mean Platelet Volume 10.6 fl (7.4-10.4); Monocytes Absolute Auto 0.6 K/mm3 (0.1-0.6); Monocytes Percent Auto 6.9 % (2.6-8.5); Neutrophils Absolute Auto 4.6 K/mm3 (1.3-6.7); Platelet Count Result 303 k/mm3 (150-375); Red Cell Distribution Width 14.1 % (11.5-14.5); White Blood Count 9.2 K/mm3 (4.5-10.0)
[2024-08-28 14:19] LABS: Alanine Aminotransferase 30 U/L (6-35); Albumin Level 4.5 g/dL (3.5-5.1); Alkaline Phosphatase 70 U/L (38-126); Anion Gap 6 mmol/L (4-12); Aspartate Amino Transferase 53 U/L (14-36); Bilirubin,Total 0.3 mg/dL (0.2-1.3); Blood Urea Nitrogen 25 mg/dL (7-17); Calcium 9.2 mg/dL (8.4-10.2); Carbon Dioxide 33 mmol/L (22-30); Chloride 98 mmol/L (98-107); Estimated Glomerular Filt Rate > 60; Glucose 80 mg/dL (65-110); Potassium 4.3 mmol/L (3.4-5.0); Sodium 137 mmol/L (137-145)
== END 2024-08-28 12:42 | disposition home or self-care (01) ==
LOC: ANHGOSHLAB 12:42
PROVIDERS: Family Medicine; PCP Nurse Practitioner Family; Visit Provider Nurse Practitioner Family
DX: R74.8 Abnormal levels of other serum enzymes (principal); R79.89 Other specified abnormal findings of blood chemistry; E03.9 Hypothyroidism, unspecified
CPT/HCPCS: 36415; 80053; 84443; 85025

== ENCOUNTER 2025-04-06 12:35 | Outpatient (CLI) | payer OTHER, SELFPAY ==
[2025-04-06 21:00] LABS: Free T4 Free Thyroxine 1.28 ng/dL (0.78-2.19)
== END 2025-04-06 12:36 | disposition home or self-care (01) ==
LOC: ANHGOSHLAB 12:36
PROVIDERS: PCP Nurse Practitioner Family; Visit Provider Nurse Practitioner Family
DX: E03.9 Hypothyroidism, unspecified (principal)
CPT/HCPCS: 36415; 84439; 84443

== ENCOUNTER 2025-08-11 11:42 | Outpatient (CLI) | payer OTHER, SELFPAY ==
--- OUTSIDE RECORDS SUMMARY | 2025-08-11 13:47 | XMS_ITS | Clinical Summary ---
Author Organization [facility] Address [address] [place] [address] Care Team Providers Care Machine Design Engineer Name Role Phone Unavailable Primary Care Provider Unavailabl e Source Comments [facility],non-owned Affiliates and Associated Physician Practices is amultiple site organization consisting of ambulatory clinics and hospital sitesin [place] and [place]. This disclosure is being madepursuant to the Care Everywhere program and may not contain all information available regarding this patient. Last updated 18.[facility] Allergies No known active allergies Medications * Be aware that medications may not be up to date on this document. Alwaysverify current medications with the patient. levothyroxine (SYNTHROID) 150 MCG tabletIndicatio ns:Hypothyroidi sm Take 1 (one) tablet by mouth daily before breakfast Reasons: Underactive Thyroid 50 tablet 1 1 Active acetaminophen (TYLENOL) 500 MG capsule Take 1 (one) capsule by mouth every 8 hours as needed for Fever or Pain 30 capsule 1 1 Active ibuprofen (MOTRIN) 600 MG tablet Take 1 (one) tablet by mouth every 6 hours as needed for Pain 30 tablet 1 1 Active polyethylene glycol 3350 (MIRALAX) 17 GM/SCOOP powder Take 17 (seventeen) g by mouth once daily As needed for constipation 500 g 1 1 Active Additional Information Patient not taking.Reported on 06/29/2021 ferrous sulfate 325 (65 FE) MG tablet Take 1 (one) tablet by mouth once daily 30 tablet 1 1 Active oxyCODONE, immediate release, (ROXICODONE) 5 MG tablet Take 1 (one) tablet by mouth every 6 hours as needed for Pain 12 tablet 1 Active plus iron (NATATAB) 29-1 MG tablet Take 1 (one) tablet by mouth once daily 90 tablet 4 1 Active Docusate Sodium (COLACE PO) Take 1 tablet by mouth as needed Active Active Problems Problem Noted Date Diagnosed Date Gestational hypertension affecting first pregnan cy 05/26/2021 affected by growth restriction 0 04/28/2021 Supervision of normal first , antepartu m 04/25/2021 Hypothyroidism 04/25/2021 Rh negative, antepartum 04/25/2021 Abnormal test Variable heart rate decelerations, antepar adan Resolved Problems Problem Noted Date Diagnosed Date Resolved Date 27 weeks gestation of 05/28/2021 Immunizations Immunization Administration Dates Next Due Cirrus Insight primary monoval ent 12+ yr 0.3mL Purple cap 06/07/2021,05/17/2021 MMR 06/22/2021(Deferred: See Comments - immuned per work up.) Rho D Immune Globulin 06/22/2021,05/29/2021 TDAP (7yrs+) 06/22/2021(Deferred: See Comments - received Tdap already.),05/16/2021 Family History Medical History Relation Name Comments CAD (Coronary Artery Disease) Father DVT - Deep Vein Thrombosis Father CVA Mother Cancer - Uterine Mother cervical Diabetes - Type 1 Mother Hypertension Mother Renal Disease Mother Thyroid Disease Mother Thyroid Disease Sister 2 Relation Name Status Comments Brother 1 Alive Brother 2 Alive Father Alive Maternal Grandfather Maternal Grandmother Mother Alive Paternal Grandfather Paternal Grandmother Alive Sister 1 Alive Sister 2 Alive Social History Tobacco Use Types Packs/Day Years Used Date Smoking Tobacco: Never Smokeless Tobacco: Never Alcohol Use Standard Drinks/Week Comments Not Currently 0 (1 standard drink = 0.6 oz pur e alcohol) Comments No Sex and Gender Information Value Date Recorded Sex Assigned at Not on file Legal Sex Female 9:58 AM CDT Gender Identity Not on file Sexual Orientation Not on file Last Filed Vital Signs Vital Sign Reading Time Taken Comments Blood Pressure 142/96 06/29/2021 9:03 AM CDT Pulse 76 06/29/2021 9:03 AM CDT Temperature 36.2 C (97.2 F) 06/29/2021 9:03 AM CDT Respiratory Rate 18 06/25/2021 9:14 AM CDT Oxygen Saturation 100% 06/25/2021 9:14 AM CDT Inhaled Oxygen Concentration - - Weight 75.8 kg (167 lb) 06/29/2021 9:03 AM CDT Height 162.6 cm (5' 4) 06/29/2021 9:03 AM CDT Body Mass Index 28.67 06/29/2021 9:03 AM CDT Plan of Treatment Health Maintenance Due Date Last Done Comments HIV SCREENING 2006 HEPATITIS C SCREENING 06/29/2009 HEPATITIS B VACCINE (1 of 3 - 19+ 3-dose series) 2010 PAP SMEAR 2012 HPV VACCINE (1 - 3-dose SCDM series) 2018 DEPRESSION SCREENING 10/15/2024 COVID-19 VACCINE (3 - 2024-2 6 season) 2025 06/07/2021, 05/17/2021 INFLUENZA VACCINE (#1) 2025 DTAP/TDAP/TD VACCINES (2 - T d or Tdap) 05/16/2031 05/16/2021 ZOSTER VACCINE (1 of 2) 2041 HIB VACCINE Aged Out No longer eligi ble based on patient's age to complete this topic MENINGOCOCCAL (Group B) VACCINE SHARED DECISION-MAKING Aged Out No longer eligible based on patient's age to complete this topic MENINGOCOCCAL GROUPS A/C/Y/W VACCINE Aged Out No longer eligible b ased on patient's age to complete this topic PNEUMOCOCCAL VACCINE Aged Out No long er eligible based on patient's age to complete this topic Insurance ANTH * Guarantor: MARISSA CASH Account Type Relation to Patient Date of Phone Billing Address Personal/Family 1990 [address] SELF PAY NO INSURANCE Member Subscriber Plan / Payer (Ef fective for All Dates) Name:Marissa Gleason Member ID:Not on file Relation to Subscriber:Not on file Name:MARISSA GLEASON Subscriber ID:Not on file Address: [address] [place] [address] Payer ID:Not on file Group ID:Not on file Type:Self Pay Address: [place], [place] SELF PAY NO INSURANCE Member Subscriber Plan / Payer (Ef fective for All Dates) Name:RosibelMarissa Member ID:Not on file Relation to Subscriber:Not on file Name:ROSIBELMARISSA Subscriber ID:Not on file Address: [address] Payer ID:Not on file Group ID:Not on file Type:Self Pay Address: [place], [place] * Guarantor: MARISSA GLEASON Account Type Relation to Patient Date of Phone Billing Address Personal/Family Spouse [address] [employer] SELF PAY NO INSURANCE Member Subscriber Plan / Payer (Ef fective for All Dates) Name:Marissa Gleason Member ID:Not on file Relation to Subscriber:Not on file Name:MARISSA GLEASON Subscriber ID:Not on file Address: [address] Payer ID:Not on file Group ID:Not on file Type:Self Pay Address: [place], [place] Advance Directives * Full Code (Latest Code Status on File) Date Activated Date Inactivated Comments 06/21/2021 11:23 AM 06/25/2021 6:11 PM * Full Code Date Activated Date Inactivated Comments 06/06/2021 10:13 AM 06/21/2021 11:23 AM * Full Code Date Activated Date Inactivated Comments 05/12/2021 4:41 PM 06/01/2021 9:18 PM
--- OUTSIDE RECORDS SUMMARY | 2025-08-11 13:47 | XMS_ITS | Encounter Summary ---
Author Organization [facility] Address [address] [place] [address] Care Team Providers Care Digging Machine Operator Name Role Phone Unavailable Primary Care Provider Unavailabl e Reason for Visit * Reason Onset Date Comments Maternal Medicine 07/20/2021 Appointment 07/20/2021 Encounter Details Date Type Department Care Team (Late st Contact Info) Description 07/20/2021 Telephone [facility] [address] [place] [address] Eric Dobson MD [address] [facility] [address] [place], [place] [id number] Maternal Medicine; Appointment Social History Tobacco Use Types Packs/Day Years Used Date Smoking Tobacco: Never Smokeless Tobacco: Never Alcohol Use Standard Drinks/Week Comments Not Currently 0 (1 standard drink = 0.6 oz pur e alcohol) Comments No Sex and Gender Information Value Date Recorded Sex Assigned at Not on file Legal Sex Female 9:58 AM CDT Gender Identity Not on file Sexual Orientation Not on file documented as of this encounter Functional Status * Is person deaf or have serious hearing difficulty? Answer Date of Assessment Author No 06/06/2021 10:03 AM Raquel Renteria RN * Is person blind or have serious difficulty seeing? Answer Date of Assessment Author No 06/06/2021 10:03 AM [facility] Raquel Gillis RN * Does person have serious difficulty walking/climbing stairs? Answer Date of Assessment Author No 06/06/2021 10:03 AM Raquel Renteria RN * Does person have difficulty dressing/bathing? Answer Date of Assessment Author No 06/06/2021 10:03 AM [facility] Raquel Gillis RN * Does person have difficulty doing errands alone? Answer Date of Assessment Author No 06/06/2021 10:03 AM Raquel Renteria RN documented as of this encounter Mental Status * Does person have difficulty concentrating/remembering/making decisions? Answer Entry Date Author No 06/06/2021 10:03 AM Raquel Renteria RN documented in this encounter Miscellaneous Notes * Telephone Encounter - Gabby Hammer - 07/20/2021 8:12 AM CDT Pt is needing to reschedule her 6 week pp visit on 08.03.21. CB# [phone] documented in this encounter Plan of Treatment Not on file documented as of this encounter Visit Diagnoses Not on filedocumented in this encounter
== END 2025-08-11 11:43 | disposition home or self-care (01) ==
LOC: ANHGOSHLAB 11:42
PROVIDERS: PCP Nurse Practitioner Family; Visit Provider Nurse Practitioner Family
DX: E03.9 Hypothyroidism, unspecified (principal); E04.9 Nontoxic goiter, unspecified; E07.9 Disorder of thyroid, unspecified
CPT/HCPCS: 36415

== ENCOUNTER 2025-08-11 11:57 | Outpatient (CLI) | payer OTHER, SELFPAY ==
--- NOTE | ~2025-08-11 | XR_ITS ---
EXAMINATION: [id number], 08/11/2025 12:07 CDT HISTORY: Pain in right knee x 6 months, runner, no inj, no surg COMPARISON: No comparisons available. Findings: No acute fracture or malalignment. No significant degenerative changes. Soft tissues unremarkable. Impression: No acute fracture or malalignment. Reviewed, dictated and finalized at location P. Impression: No acute fracture or malalignment.
--- NOTE | ~2025-08-11 | XR_ITS ---
EXAMINATION: XR tibia fibula RT 2V, 08/11/2025 12:07 CDT HISTORY: M25.561 - Pain in right knee COMPARISON: No comparisons available. Findings: No acute fracture or malalignment. No significant degenerative changes. Soft tissues unremarkable. Impression: No acute fracture or malalignment. Reviewed, dictated and finalized at location P. Impression: No acute fracture or malalignment.
== END 2025-08-11 11:58 | disposition home or self-care (01) ==
LOC: GOSHIMG 11:57
PROVIDERS: PCP Nurse Practitioner Family; Visit Provider Nurse Practitioner Family
DX: M25.561 Pain in right knee (principal); M79.661 Pain in right lower leg
CPT/HCPCS: 73560; 73590